=== PATIENT | female | born 1955 | race Caucasian/White ===

== ENCOUNTER 2018-11-16 08:33 | Day surgery (SDC) | payer BC ==
[2018-11-09 17:38] VITALS: BMI 21.1
[2018-11-16] MEDS ORDERED: PROPOFOL 20 ML ONE ×4 (09:43)
[2018-11-16 10:24] VITALS: TEMP 97.6
[2018-11-16 11:28] VITALS: BP 118/70; PULSE 48
== END 2018-11-16 10:55 | disposition home or self-care (01) ==
LOC: FASU-ENDO 08:33
PROVIDERS: ATTEND Internal Medicine Gastroenterology
PROC: 0DJD8ZZ Inspection of Lower Intestinal Tract, Via Natural or Artificial Opening Endoscopic (ICD-10-PCS; principal; 2018-11-16 09:57)
DX: Z12.11 Encounter for screening for malignant neoplasm of colon (principal); K57.30 Diverticulosis of large intestine without perforation or abscess without bleeding

== ENCOUNTER 2019-06-03 00:20 | Emergency (ER) | payer BC ==
[2019-06-03 00:28] VITALS: TEMP 98.5; BMI 22.2
--- NOTE | 2019-06-03 00:29 | PDOC ---
History of Present Illness - General Chief Complaint: Pain Stated Complaint: ABD PAIN Time Seen by Provider: 06/03/19 00:27 - History of Present Illness Initial Comments: 06/03/19 01:07 This 64-year-old woman with a history of GERD and anxiety presents with 24-hour history of generalized abdominal pain. Patient describes pain as starting this morning (at first mild generalized ;becoming crampy and more severe during the day). She describes feeling of fullness with mild nausea. Despite queasiness, she has been able to tolerate PO (toast, soup with last solid food a few hours prior to presentation). No vomiting or diarrhea present. She has no change in the pain with eating. She has taken no medications for the pain. She has no dysuria/hematuria/urinary frequency/flank pain. She has noted midline lower lumbar pain today (which patient has had intermittently in the past). Last colonoscopy within last year was reportedly normal. No history of gallbladder disease, PUD, gastritis. Last bowel movement was this morning (normal). Medications as noted below No known allergies Non-smoker; generally has wine with dinner but no other alcohol use PSH: Past History - Past Medical History Allergies/Adverse Reactions: Allergies Allergy/AdvReac Type Severity Reaction Status Date / Time No Known Allergies Allergy Verified 11/09/18 17:28 Home Medications: Ambulatory Orders Citalopram Hydrobromide [Celexa] 10 mg PO DAILY 12/11/12 Pantoprazole Sodium [Protonix -] 40 mg PO DAILY 11/09/18 Levofloxacin [Levaquin] 750 mg PO DAILY #9 tablet 06/03/19 metroNIDAZOLE [Flagyl -] 500 mg PO TID #27 tablet 06/03/19 Anemia: No Asthma: No Cancer: No Cardiac Disorders: No CVA: No COPD: No CHF: No Dementia: No Diabetes: No GI Disorders: Yes (acid reflux) Disorders: No HTN: No Hypercholesterolemia: No Liver Disease: No Seizures: No Thyroid Disease: No - Surgical History Abdominal Surgery: No Appendectomy: No Cardiac Surgery: No Cholecystectomy: No Lung Surgery: No Neurologic Surgery: No Orthopedic Surgery: No - Psycho Social/Smoking Cessation Hx Smoking Status: No Smoking History: Unknown if ever smoked Have you smoked in the past 12 months: No Number of Cigarettes Smoked Daily: 0 If you are a former smoker, when did you quit?: 15 y ago Information on smoking cessation initiated: No Hx Alcohol Use: No Drug/Substance Use Hx: No Substance Use Type: Alcohol Hx Substance Use Treatment: No Review of Systems - Review of Systems Able to Perform ROS?: Yes Comments:: 12 point review of systems is negative except for what is noted in the history of present illness *Physical Exam - Vital Signs Last Vital Signs Temp Pulse Resp BP Pulse Ox 98.5 F 88 14 110/64 100 06/03/19 00:22 06/03/19 00:22 06/03/19 00:22 06/03/19 00:22 06/03/19 00:22 - Physical Exam GENERAL: Adult female, alert and oriented x3, mild distress secondary to abdominal pain HEAD: Normal with no signs of trauma. EYES: PERRLA, EOMI, sclera anicteric, conjunctiva clear. ENT: Ears normal, nares patent, oropharynx clear without exudates. Dry mucous membranes. NECK: Normal range of motion, supple without lymphadenopathy, JVD, or masses. LUNGS: Breath sounds equal, clear to auscultation bilaterally. No wheezes, and no crackles. HEART:Regular rate and rhythm, normal S1 and S2 without murmur, rub or gallop. ABDOMEN:.normal bowel sounds ;tenderness in the right lower and left lower quadrants with mild rebound; no involuntary guarding; no masses EXTREMITIES: Normal range of motion, no edema. No clubbing or cyanosis. No erythema, or tenderness. NEUROLOGICAL: Cranial nerves II through XII grossly intact. Normal speech. No focal neurological deficits. MUSCULOSKELETAL: Back non-tender to palpation, no CVA tenderness SKIN: Warm, Dry, normal turgor, no rashes or lesions noted. ED Treatment Course - LABORATORY CBC & Chemistry Diagram: 06/03/19 01:00 06/03/19 01:00 Medical Decision Making - Medical Decision Making 06/03/19 01:15 This 64-year-old woman with a history of GERD and anxiety but no significant previous other gastrointestinal issues presents with 1 day history of progressive generalized abdominal pain accompanied by nausea. No fever/chills or vomiting/diarrhea noted. Exam as noted above with tenderness present in both the right and left lower quadrants. No previous history of diverticulitis ; recent colonoscopy reportedly without significant abnormality. CBC/chemistry profile/lactic acid/lipase/UA sent and 1 L normal saline IV started. Patient did not want any medication for her nausea at this time. Differential diagnosis includes but not limited to acute appendicitis, acute diverticulitis, SBO 06/03/19 03:23 Laboratory evaluation notable for white blood cell count of 11,500; otherwise, lab values were within normal limits. Abdominal/pelvic CT with IV contrast performed Preliminary interpretation by Imaging extension associate: Acute diverticulitis of the sigmoid colon no abscess or free air with a normal appendix. There was small amount of ascites. Remainder of solid organs are unremarkable. Results of the work-up discussed with the patient and her . Patient feels much more comfortable after Toradol 15 mg IV given (after CT was performed ). She denies any residual nausea. Patient remarked that she has a "sensitive stomach" to most antibiotics. Because she has uncomplicated diverticulitis , no further significant pain or nausea, outpatient treatment of her acute diverticulitis is appropriate. Because of her sensitivity to oral antibiotics, 1 dose of IV antibiotics offered to the patient but she stated that she to start oral antibiotics now and be discharged. Prior to being discharged, patient noted that she could use a little extra analgesia before she was left for home and was given 2 mg morphine IV/4 mg Zofran IV. 06/03/19 03:52 First doses of Levaquin 750 mg and Flagyl 500 mg ,both PO given to the patient with prescriptions transmitted for Levaquin 750 mg daily along with Flagyl 500 mg 3 times a day each for 9 more days. Patient should maintain light diet and can use [id number] ibuprofen ( which patient has used routinely in the past for musculoskeletal pain)/ acetaminophen as needed for pain. She should follow-up with Dr. Webb, calling his office tomorrow to arrange follow-up within the next few days. If she has worsening pain or experiences nausea/vomiting or fever, she should return to the ER Discharge - Discharge Information Problems reviewed: Yes Clinical Impression/Diagnosis: Acute diverticulitis Condition: Stable Disposition: HOME - Additional Discharge Information Prescriptions: Levofloxacin [Levaquin] 750 mg PO DAILY #9 tablet metroNIDAZOLE [Flagyl -] 500 mg PO TID #27 tablet - Follow up/Referral Referrals: Ronnell Webb MD [Primary Care Provider] - Call tomorrow - Patient Discharge Instructions Patient Printed Discharge Instructions: Diverticulitis Additional Instructions: Light diet Levaquin 750 mg daily for 9 more days Flagyl 500 mg 3 times a day for 9 more days Motrin/Tylenol as needed for pain Call Dr. Webb's office in a.m. to arrange follow-up within the next 5 days Return to ER if you have increasing pain, vomiting or fever - Post Discharge Activity
[2019-06-03] MEDS ORDERED: SODIUM CHLORIDE 1,000 ML IV STA (00:47)
[2019-06-03 01:31] LABS: BASO % 0.4 % (0-2.0); EOS % 0.4 % (0-4.5); HEMATOCRIT 37.9 % (32.4-45.2); HEMOGLOBIN 12.9 GM/dL (10.7-15.3); LYMPH % 24.5 % (8-40); MCH 31.9 pg (25.7-33.7); MEAN CELL VOLUME 93.8 fl (80-96); MEAN PLT VOLUME 9.2 fl (7.5-11.1); MONO % 5.1 % (3.8-10.2); NEUT % 69.6 % (42.8-82.8); PLATELET COUNT 169 K/MM3 (134-434); RBC 4.04 M/mm3 (3.60-5.2); RDW 13.4 % (11.6-15.6); WHITE BLOOD COUNT 11.5 K/mm3 (4.0-10.0)
[2019-06-03 01:44] LABS: INR 1.03 (0.83-1.09); PROTHROMBIN TIME (PATIENT) 12.2 SEC (9.7-13.0)
[2019-06-03 01:53] LABS: ALBUMIN 3.9 g/dl (3.4-5.0); BILIRUBIN,TOTAL 0.5 mg/dL (0.2-1); CALCIUM 8.9 mg/dL (8.5-10.1); CREATININE 0.7 mg/dL (0.55-1.3); POTASSIUM 3.8 mmol/L (3.5-5.1); TOT PROT 6.8 g/dl (6.4-8.2)
[2019-06-03] MEDS ORDERED: KETOROLAC TROMETHAMINE 30 MG/1 ML VIAL IVPUSH ONE (02:10)
[2019-06-03] MEDS ORDERED: KETOROLAC TROMETHAMINE 15 MG/ML VIAL ONE (02:11)
[2019-06-03] MEDS ORDERED: metroNIDAZOLE 500 MG TABLET PO ONE (03:15)
[2019-06-03] MEDS ORDERED: metroNIDAZOLE 250 MG TABLET ONE (03:22)
[2019-06-03] MEDS ORDERED: morphine CARPU-JECT 2 MG/1 ML DISP.SYRIN IVPUSH ONE (03:28)
[2019-06-03] MEDS ORDERED: ONDANSETRON 4 MG/2 ML VIAL ONE (03:29)
[2019-06-03] MEDS ORDERED: morphine SULFATE 4 MG/ML VIAL ONE (03:29)
[2019-06-03] MEDS ORDERED: ONDANSETRON 4 MG/2 ML VIAL IVPUSH ONE (03:29)
[2019-06-03 03:52] VITALS: BP 103/68; PULSE 69
== END 2019-06-03 03:24 | disposition home or self-care (01) ==
LOC: FER 00:20
PROC: 3E0333Z Introduction of Anti-inflammatory into Peripheral Vein, Percutaneous Approach (ICD-10-PCS; principal; 2019-06-03)
PROC: 3E033NZ Introduction of Analgesics, Hypnotics, Sedatives into Peripheral Vein, Percutaneous Approach (ICD-10-PCS; 2019-06-03)
PROC: 3E0337Z Introduction of Electrolytic and Water Balance Substance into Peripheral Vein, Percutaneous Approach (ICD-10-PCS; 2019-06-03)
PROC: 3E033GC Introduction of Other Therapeutic Substance into Peripheral Vein, Percutaneous Approach (ICD-10-PCS; 2019-06-03)
DX: K57.32 Diverticulitis of large intestine without perforation or abscess without bleeding (principal); K21.9 Gastro-esophageal reflux disease without esophagitis; F41.9 Anxiety disorder, unspecified
CPT/HCPCS: 36415; 74177-TC; 80053; 83605; 83690; 85025; 85610; 99285-25; J7030

== ENCOUNTER 2019-12-11 15:42 | Emergency (ER) | payer BC ==
[2019-12-11 16:00] VITALS: BMI 22.6
[2019-12-11 16:34] LABS: BASO % 0.8 % (0-2.0); EOS % 0.2 % (0-4.5); HEMATOCRIT 42.3 % (32.4-45.2); HEMOGLOBIN 14.1 GM/dl (10.7-15.3); LYMPH % 26.5 % (8-40); MCH 32.1 pg (25.7-33.7); MCHC 33.3 g/dl (32.0-36.0); MEAN CELL VOLUME 96.4 fl (80-96); MEAN PLT VOLUME 8.8 fl (7.5-11.1); MONO % 4.1 % (3.8-10.2); NEUT % 68.4 % (42.8-82.8); PLATELET COUNT 194 K/MM3 (134-434); RBC 4.38 M/mm3 (3.60-5.2); RDW 13.1 % (11.6-15.6); WHITE BLOOD COUNT 12.5 K/mm3 (4.0-10.8)
[2019-12-11 16:52] LABS: CALCIUM 9.2 mg/dl (8.5-10); CREATININE 0.9 mg/dl (0.55-1.3); POTASSIUM 3.7 mmol/L (3.5-5.1); TOT PROT 7.8 g/dl (6.4-8.2)
[2019-12-11 16:59] LABS: EPITHELIAL CELLS RARE /hpf
--- NOTE | 2019-12-11 16:59 | PDOC ---
Documentation entered by Obdulio Brown SCRIBE, acting as scribe for Soumya Church MD. Soumya Church MD: This documentation has been prepared by the Stephanie benavides Aaron, SCRIBE, under my direction and personally reviewed by me in its entirety. I confirm that the documentation accurately reflects all work, treatment, procedures, and medical decision making performed by me. History of Present Illness - General Chief Complaint: Pain Stated Complaint: LLQ PAIN SINCE THIS AM History Source: Patient Exam Limitations: No Limitations - History of Present Illness Initial Comments: 12/11/19 16:28 The patient is a 64 year old female with a significant PMH of GERD, anxiety, and diverticulitis (May) who presents to the emergency department for sudden onset of LLQ pain since 6 am this morning. Patient reports pain is worsened by movement and palpation, and is absent when at rest. Patient claims the pain is similar to the diverticulitis pain from May except it is sharper now. Patient endorses LLQ pain radiating around to l. Lower back. Patient endorses decreased appetite. No medication was taken for the pain. Patient denies suspicious food intake, r ecent travel, or sick contacts. Patient denies fever, chills, chest pain, SOB, dizziness, weakness, N, V, D, melena, hematochezia, bladder and bowel problems. Denies dysuria, hematuria, urgency or frequency to urinate. Patient denies any other symptoms. colonoscopy done recently, unremarkable. Allergies: None Past Medical History: GERD, anxiety, and diverticulitis (May) Social history: Lives with family. Social EtOH use. No tobacco or drug use. Surgical history: colonoscopy (recent unremarkable colonoscopy with Dr. Webb), endoscopy, x1 Meds: as documented in EMR PMD: [facility] GI: Dr. Webb. 12/11/19 17:59 Past History - Medical History Allergies/Adverse Reactions: Allergies Allergy/AdvReac Type Severity Reaction Status Date / Time No Known Allergies Allergy Verified 11/09/18 17:28 Home Medications: Ambulatory Orders Citalopram Hydrobromide [Celexa] 10 mg PO DAILY 12/11/12 Pantoprazole Sodium [Protonix -] 40 mg PO DAILY 11/09/18 Ciprofloxacin [Cipro -] 500 mg PO Q12H #20 tablet 12/11/19 metroNIDAZOLE [Flagyl -] 500 mg PO DAILY #20 tablet 12/11/19 Anemia: No Asthma: No Cancer: No Cardiac Disorders: No CVA: No COPD: No CHF: No Dementia: No Diabetes: No GI Disorders: Yes (acid reflux) Disorders: No HTN: No Hypercholesterolemia: No Liver Disease: No Seizures: No Thyroid Disease: No - Surgical History Abdominal Surgery: No Appendectomy: No Cardiac Surgery: No Cholecystectomy: No Lung Surgery: No Neurologic Surgery: No Orthopedic Surgery: No - Psycho-Social/Smoking History Smoking Status: No Smoking History: Unknown if ever smoked Have you smoked in the past 12 months: No Number of Cigarettes Smoked Daily: 0 If you are a former smoker, when did you quit?: 15 y ago Review of Systems - Review of Systems Comments:: 12/11/19 16:28 GENERAL/CONSTITUTIONAL: No fever or chills. No weakness. no sweats. HEAD, EYES, EARS, NOSE AND THROAT: No change in vision or hearing. No ear pain or discharge. No sore throat or mouth pain. No difficulty swallowing. No congestion. CARDIOVASCULAR: No chest pain or palpitations, syncope or edema. RESPIRATORY: No SOB, cough, wheezing, or hemoptysis. GASTROINTESTINAL +LLQ pain radiating to the lower back. No nausea/vomiting. No diarrhea or constipation. No bloody stools. GENITOURINARY: No hematuria, dysuria, frequency, urgency or other changes. MUSCULOSKELETAL: No joint or muscle swelling or pain. No decreased range of motion. No neck or back pain. SKIN: No rash or changes in skin color or lesions. No wounds. NEUROLOGIC: alert and oriented appropriately No headache, dizziness, loss of consciousness, or change in strength/sensation. No gait instability. HEMATOLOGIC/LYMPHATIC: No anemia, easy bruising/bleeding, or history of blood clots. No swollen lymph nodes ALLERGIC/IMMUNOLOGIC: No allergies PSYCH: no anxiety/depression All other systems reviewed and negative, or as documented in HPI. *Physical Exam - Physical Exam 12/11/19 16:30 General: Well appearing, awake and alert, NAD. HEENT: NCAT, PERRL, EOMI, clear conjunctiva, anicteric, moist mucous membranes, clear oropharynx, no oral lesions. Neck: neck supple, FROM Resp: CTAB, normal and even respirations, no respiratory distress CVS: RRR, no murmurs, 2+ peripheral pulses throughout, no peripheral edema Abdomen: + LLQ tenderness. soft, ND, no rebound or guarding. No CVAT. Back: nontender, normal inspection and ROM MSK: no edema, CASANOVA x4, ROM intact. No clubbing or cyanosis. normal bulk and tone. Extremities: no calf tenderness Neuro: alert, oriented appropriately; no focal neurologic deficits Skin: warm and well perfused, cap refill <2 sec, normal color ED Treatment Course - LABORATORY CBC & Chemistry Diagram: 12/11/19 16:29 12/11/19 16:01 Medical Decision Making - Medical Decision Making 12/11/19 16:58 Vital Signs Temp Pulse Resp BP Pulse Ox 98.2 F 74 16 139/94 100 12/11/19 15:44 12/11/19 15:44 12/11/19 15:44 12/11/19 15:44 12/11/19 15:44 vitals reviewed, wnl, reassuring DDx abdominal pain: Renal colic, biliary colic, metabolic/electrolyte derangements. GERD, PUD, esophageal spasm, pancreatitis, hepatitis, constipation, colitis, gastroenteritis, cholecystitis, UTI, pyelonephritis, ileus, SBO, medication side effect, hernia, appendicitis, diverticulitis, mesenteric ischemia. msk strain, mesenteric adenitis, psoas abscess. - no GIB - LLQ pain, concern for diverticulitis, complicated vs uncomplicated, CT a/p to elucidate could also be stone but UA is neg for blood infection/ labs and lytes, mild leukocytosis 12K noted, otherwise unremarkable pt declines analgesia, only pain with palpation. ct a/p with acute sigmoid diverticulitis; no perf, no abscess, small fluid in pelvis likely from the diverticulitis; incidental right renal cyst, similar to prior and nephrolithiasis, which are not the cause of sx Tolerating oral intake. Vital signs reviewed and are normal. given first dose of cipro/flagyl x 10d course. instructions provided. pt states she had levaquin and flagyl last time for diverticulitis, unclear which one caused rash to her arm/chest on day 5 given abx here, no reaction, told to monitor for sx, allergies diverticulitis diet reviewed The patient was advised that even though there is no evidence of a surgical emergency at this time, sometimes this is not visible on CT IMAGING or in the labs early in a disease course and that if there is additional pain they are to return for repeat evaluation. The patient stated understanding of this, has decision making capacity and is discharged in stable condition. The patient was instructed to return to the emergency department for re-evaluation in 8-12 hours and sooner if they feel worse in any way. 12/11/19 18:11 Discharge - Discharge Information Problems reviewed: Yes Clinical Impression/Diagnosis: Acute diverticulitis of intestine Condition: Good Disposition: HOME - Admission No - Additional Discharge Information Prescriptions: Ciprofloxacin [Cipro -] 500 mg PO Q12H #20 tablet metroNIDAZOLE [Flagyl -] 500 mg PO DAILY #20 tablet - Follow up/Referral Referrals: [facility] Carson [Primary Care Provider] - Ronnell Webb MD [Staff Physician] - - Patient Discharge Instructions Patient Printed Discharge Instructions: DI for Diverticulitis Additional Instructions: 1) Please follow-up with your primary care doctor in the next 1-2 days. Please call tomorrow for for any urgent issues. Have a condition called acute diverticulitis which will be treated with antibiotics. follow up with Dr Webb, your embedded software architect. 2) You were given a copy of the tests performed today. Please bring the results with you and review them with your primary care doctor. Your laboratory / rubén ging results revealed acute diverticulitis similar to your presentation, there is no free air, abscess or major complications. 3) If you have any worsening of symptoms or any other concerns please return to the ED immediately. Return if worsening symptoms including fevers, headache, vomiting, visual or hearing disturbances, abdominal pain, bloody stools, chest pain, shortness of breath, syncope, dehydration, inability to take things by mouth/vomiting, altered mental status, or worsening concerning symptoms. 4) Please continue taking your home medications as directed. your medications on discharge include_Flagyl twice a day and ciprofloxacin twice a day for 10 days total.. side effects may include upset stomach, abdominal pain, vomiting, or diarrhea. do not drink alcohol with your medications. You can take [id number] Tylenol and/or ibuprofen as needed for pain control if needed Stay well hydrated and rest adequately. Make an appointment. If you cannot follow-up with your primary care doctor please return to the ED - Post Discharge Activity
[2019-12-11] MEDS ORDERED: CIPROFLOXACIN 500 MG TABLET (RESTRICTED TO ID) PO ONE (17:56)
[2019-12-11] MEDS ORDERED: metroNIDAZOLE 250 MG TABLET PO ONE (17:56)
[2019-12-11] MEDS ORDERED: metroNIDAZOLE 250 MG TABLET ONE (17:58)
[2019-12-11] MEDS ORDERED: CIPROFLOXACIN 250 MG TABLET (RESTRICTED TO ID) PO ONE (17:59)
[2019-12-11 18:15] VITALS: BP 144/77; PULSE 62; TEMP 98.3
== END 2019-12-11 18:21 | disposition home or self-care (01) ==
LOC: FER 15:42
DX: K57.92 Diverticulitis of intestine, part unspecified, without perforation or abscess without bleeding (principal)
CPT/HCPCS: 36415; 74177-TC; 80053; 81003; 81015; 85025; 87086; 99285-25; Q9967

== ENCOUNTER 2024-06-14 07:31 | Day surgery (SDC) | payer OTHER ==
[2024-05-13 09:49] VITALS: BMI 22.2
[2024-06-14 09:48] VITALS: PULSE 55; RESP 16; TEMP 96.6
[2024-06-14 09:49] VITALS: BP 131/68
== END 2024-06-14 10:15 | disposition home or self-care (01) ==
LOC: FASU-ENDO 07:31
PROVIDERS: ATTEND Internal Medicine Gastroenterology
PROC: 0DB98ZX Excision of Duodenum, Via Natural or Artificial Opening Endoscopic, Diagnostic (ICD-10-PCS; 2024-06-14)
PROC: 0DB68ZX Excision of Stomach, Via Natural or Artificial Opening Endoscopic, Diagnostic (ICD-10-PCS; 2024-06-14)
PROC: 0DBH8ZX Excision of Cecum, Via Natural or Artificial Opening Endoscopic, Diagnostic (ICD-10-PCS; principal; 2024-06-14 08:55)
DX: Z12.11 Encounter for screening for malignant neoplasm of colon (principal); K29.50 Unspecified chronic gastritis without bleeding; K57.30 Diverticulosis of large intestine without perforation or abscess without bleeding; K31.7 Polyp of stomach and duodenum; D12.0 Benign neoplasm of cecum; Z83.719 Family history of colon polyps, unspecified
CPT/HCPCS: 88305-TC; 88342-TC